=== PATIENT | female | born 1960 | race African-American/Black ===

== ENCOUNTER 2016-06-14 21:30 | Emergency (ER) | payer OTHER ==
[~2016-06-14] VITALS: Ht 175.3 cm; Wt 62.0 kg
[~2016-06-14 21:30] MED LIST: ATEN50TA PO; DIATR MEGLU/DIATRIZOATE SOLN 120ML ONE; IOHEXOL-300 100 ML BOTTLE ONE; METF-240 PO; PHEN100C4 PO; SIMV40TA5 PO; SODIUM CHLORIDE 0.9% 10ML VIAL ONE; TRIA1TAB5 PO
[2016-06-14] MEDS ORDERED: ONDANSETRON HCL 4MG/2ML VIAL IV STA (23:31)
[2016-06-14] MEDS ORDERED: KETOROLAC 30MG/ML VIAL IV STA (23:31)
[2016-06-14] MEDS ORDERED: SODIUM CHLORIDE 0.9% 1,000 ML IV ONE (23:31)
[2016-06-14 23:45] LABS: BASOPHILS % 1.1 % (0.0-2.0); EOSINOPHILS % 1.6 % (0.0-5.0); HEMOGLOBIN. 14.1 g/dL (12.0-16.0); MEAN CORPUSCULAR HGB CONC 32.7 g/dL (31.0-37.0); MEAN CORPUSCULAR VOLUME 88.6 fL (81.0-99.0); MONOCYTES % 8.7 % (2.0-8.0); NEUTROPHILS % 67.6 % (40.0-76.0); PLATELET 247 x1000/uL (130-400); RED BLOOD CELL COUNT 4.86 mill/uL (4.2-5.4); RED CELL DISTRIBUTION WIDTH 13.8 % (11.6-14.6); WHITE BLOOD COUNT 11.1 x1000/uL (4.5-11.0)
[2016-06-14 23:52] LABS: PROTHROMBIN TIME 10.1 sec
[2016-06-14 23:58] LABS: ALANINE AMINOTRANSFERASE 23 IU/L (13-61); ALBUMIN 3.9 g/dL (3.4-5.0); ANION GAP 14; CALCIUM 9.7 mg/dL (8.5-10.1); CARBON DIOXIDE 29 mEq/L (21-32); CHLORIDE 97 mEq/L (98-107); INDEX HEMOLYSI 1 (1-3); INDEX ICTERIC 1 (1-4); INDEX LIPEMIC 1 (1-3); LIPASE 79 IU/L (73-393); UREA NITROGEN BLOOD 23 mg/dL (7-21); eGFR > 60 mL/min (>60)
[2016-06-15 00:25] LABS: CLARITY URINE CLEAR (CLEAR); COLOR URINE YELLOW (YELLOW); GLUCOSE URINE NEGATIVE (NEGATIVE); KETONES URINE NEGATIVE (NEGATIVE); LEUKOCYTE ESTERASE URINE 1+ (NEGATIVE); NITRITE URINE NEGATIVE (NEGATIVE); OCCULT BLOOD URINE TRACE (NEGATIVE); PROTEIN URINE NEGATIVE (NEGATIVE); SPECIFIC GRAVITY URINE 1.018 (1.005-1.030); UROBILINOGEN URINE 0.2 E.U./dL (0.2-1.0)
[2016-06-15 01:38] LABS: RBC URINE 0-2 /hpf (0-2); SQUAMOUS EPITHELIAL CELL URINE FEW /lpf (RARE/1+); WBC URINE 0-2 /hpf (0-2)
[2016-06-15 01:39] LABS: BACTERIA URINE TRACE
[2016-06-15 03:04] VITALS: BP 143/65
== END 2016-06-15 03:42 | disposition home or self-care (01) ==
LOC: ER 21:31
DX: R10.33 Periumbilical pain (principal); R11.2 Nausea with vomiting, unspecified; I10 Essential (primary) hypertension; J45.909 Unspecified asthma, uncomplicated; E11.9 Type 2 diabetes mellitus without complications; Z86.73 Personal history of transient ischemic attack (TIA), and cerebral infarction without residual deficits
CPT/HCPCS: 36415; 74177; 80053; 81001; 83690; 85025; 85610; 96361; 96374; 96375; 99285; A4216; J1885; J2405; J7030; Q9967; Q9963